=== PATIENT | male | born 1940 | race Caucasian/White ===

== ENCOUNTER 2017-01-14 11:28 | Inpatient (IN) | payer OTHER, MEDICARE ==
[~2017-01-14] VITALS: Ht 172.7 cm; Wt 74.8 kg
[~2017-01-14 11:28] MED LIST changes: -AZAT50 PO; -CALC200S NASAL; -CALC500T46 PO; -CALCTAB19 PO; -CHOL20005 PO; -FOLI1TAB4 PO; -HYDR-3583 PO; -HYDR25TA5 PO; -LEVO100T5 PO; -LISI-515 PO; -LISI40TA PO; -MAGN1TAB14 PO; -MAGN400T2 PO; -METH2.5T PO; -OCUVTAB4 PO; -OMEGCAP PO; -TOPR25TA PO; -TRAM50TA PO; -TRAZ50TA12 PO; -TRIA37.53 PO; -ULTR50TA5 PO; -VIAG50TA PO; -VITA100032; -VITA10007 PO; -[UNRECOGNIZED DRUG - CODE] TOPICAL
[2017-01-14] MEDS ORDERED: TOPR25TA PO (13:18)
[2017-01-14] MEDS ORDERED: TRIA37.53 PO (13:18)
[2017-01-14] MEDS ORDERED: LEVO100T5 PO (13:18)
[2017-01-14] MEDS ORDERED: CALC200S NASAL (13:18)
[2017-01-14] MEDS ORDERED: MAGN400T2 PO (13:19)
[2017-01-14] MEDS ORDERED: OMEGCAP PO (13:19)
[2017-01-14] MEDS ORDERED: ULTR50TA5 PO (13:25)
[2017-01-14] MEDS ORDERED: FOLI1TAB4 PO (13:25)
[2017-01-14] MEDS ORDERED: METH2.5T PO (13:25)
[2017-01-14] MEDS ORDERED: CHOL20005 PO (13:25)
[2017-01-14] MEDS ORDERED: VITA10007 PO (13:25)
[2017-01-14] MEDS ORDERED: CALC500T46 PO (13:25)
[2017-01-14] MEDS ORDERED: LISI-515 PO (13:25)
[2017-01-14] MEDS ORDERED: TRAZ50TA12 PO (13:25)
[2017-01-14] MEDS ORDERED: AZAT50 PO (13:25)
[2017-01-14] MEDS ORDERED: OCUVTAB4 PO (13:26)
--- NOTE | 2017-01-15 13:39 | MH ---
cc: CARLOS DAVIDSON MD, ROHIT K. M.D. DATE OF ADMISSION 01/16/2017 ADMISSION DIAGNOSIS Cervical stenosis HISTORY OF PRESENT ILLNESS This is a 76-year-old male who is well-known to us. He has previously undergone a C4/C5, C5/C6, and C6-C7 anterior cervical fusion with cervical plate placement on 02/14/2009. He did well after surgery, although presented to our office recently three days ago for an evaluation of neck pain with weakness in his arms and unsteady gait. He states he has rheumatoid arthritis and has been on Enbrel and methotrexate for a long time. He states that they placed him on a new rheumatoid arthritis medication in June 2016 and three weeks later he developed neutropenic fever and went into septic shock. He states he was placed on steroids and after he was discharged, started noticing paresthesias in his hands that progressively got worse. He states that at this point. He has paresthesias affecting his hands and arms all over. He has pain radiating into the upper extremities, but has difficulty telling the distribution secondary to the numbness and paresthesias. He also has numbness from the knees down to the toes. He rates his neck pain as 8/10. He denies any urinary frequency or incontinence. He started noticing ataxia since September of 2016. PAST MEDICAL HISTORY Significant for: 1. Rheumatoid arthritis 2. Severe cervical stenosis requiring multilevel cervical decompression and fusion with cervical plate placement in 2008 3. Hypothyroidism 4. Hypertension 5. Hyperlipidemia 6. 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 7. She has also had a right carotid endarterectomy in 1997. 8. Bypass heart surgery five vessel in 2003. CURRENT MEDICATIONS He is takin. Calcitonin 2. [place] nasal solution one spray each nostril every morning 3. Levothyroxine 0.1 mg daily 3. Hydrochlorothiazide/Triamterene 25/37.5 daily 4. Prednisone 5 mg daily 5. Allopurinol 100 mg daily 6. Metoprolol 25 mg 1/2 tablet daily 7. Sulfasalazine 500 mg daily 8. Magnesium oxide 420 mg two tablets Thursday, Thursday, Thursday one tablets Thursday, and Thursday. 9. Fish oil 1000 mg daily 10. Vitamin C 1000 mg daily 11. Trazodone 50 mg daily 12. Lisinopril 40 mg 1/2 tablet daily 13. Folic acid 1 mg three daily except on Thursday 14. Simvastatin 40 mg one-half daily 15. Methotrexate 2.5 mg two tablets every Thursday 16. Calcium with vitamin D 1000 mg daily 17. Vitamin D3 1000 international units two tablets daily 18. Aspirin 81 mg daily, this was placed on hold prior to surgical intervention. 19. Tramadol 50 mg two tablets q.6 h p.r.n. pain 20. PreserVision higher vitamin one in the morning when the after. ALLERGIES TO MEDICATIONS HE IS SENSITIVE TO IV NARCOTICS WHICH HE STATES MAKES HIM VERY NAUSEOUS AND VOMITING. FAMILY HISTORY His father is at 58 year-old, was diabetic and had heart disease. His mother is at 92 years-old, had COPD. His brother is when he was an infant. His sister is alive and another brother is alive and well. SOCIAL HISTORY He is retired. He is . He has two children. He does not smoke and has not smoked in the past. He does not drink alcohol. REVIEW OF SYSTEMS CONSTITUTIONAL: Denies any fever or chills. EARS, NOSE, AND THROAT: No pharyngitis, exudates or bloody drainage from his nose. CARDIOVASCULAR: Denies any chest pain or palpitations. RESPIRATORY: No cough or shortness of breath. GENITOURINARY: No dysuria or hematuria. MUSCULOSKELETAL: Positive for joint pain related to his rheumatoid arthritis. SKIN: No rashes or pruritus. NEUROLOGIC: No difficulty with speech or memory. GASTROINTESTINAL: No nausea, vomiting, or abdominal pain. PSYCHIATRIC: No anxiety or depression symptoms. ENDOCRINE: No polyuria or polydipsia. HEMATOLOGIC: Positive for bruising or bleeding tendencies. PHYSICAL EXAMINATION HEAD: Normocephalic, atraumatic. NECK: Supple. No carotid bruits. Clear on auscultation. LUNGS: Clear to auscultation bilaterally. HEART: Regular rate and rhythm. Normal S1 and S2. ABDOMEN: Soft, nontender. Positive bowel sounds. SKIN: Reveals no cyanosis or erythema. MUSCULOSKELETAL: He can abduct his shoulders only to about 40 degrees and has weakness 2/5. Biceps strength is 4/5. Triceps is 3-/5, hand intrinsics is 2/5 bilaterally and his lower extremities he is 4/5 bilaterally. He has a spastic gait with ambulation. NEUROLOGIC: He is awake, alert, oriented. Cranial nerves II-XII are grossly intact. His speech is fluent. Comprehension is good. Sensation is diminished in the upper and lower extremities below the knee. Reflexes are diminished in the lower extremities. There is Joon reflex. DATA REVIEWED MRI of the cervical spine from January 03, 2016 was reviewed which reveals a severe spinal stenosis and cord compression at the C3-C4 level where the spinal canal is reduced at about 3 mm from a disk herniation. He has a previous C4-C7 anterior cervical diskectomy and fusion with plate in place. There is C7/T1 anterolisthesis and disk protrusion but no significant spinal stenosis. IMPRESSION This is a 76-year-old male with severe cervical myelopathy with associated weakness and very spastic gait over the last four to five months which has progressively gotten worse. MRI of the cervical spine revealed severe spinal stenosis and cord compression at the C3-C4 level where the spinal canal is reduced to about 3 mm from a disk herniation. He has also undergone in the past a C4-C7 anterior cervical fusion and there is a cervical plate in place. He also has a C7 and T1 anterolisthesis with disk protrusion, but no significant spinal stenosis. PLAN We have discussed treatment options and given severe spinal cord compression and associated cervical myelopathy, we have recommended anterior C3-C4 microdiskectomy with fusion and possible removal of the C4-C7 plate to rule out exposure for the C3-C4 level. The procedure, as well as, the risk benefit, alternatives and recovery time were explained in great detail with the patient. We have discussed the procedure using spine models in the office and all his questions were answered to his satisfaction. The patient states that he understands the risks involved with surgery which include, but are not limited to bleeding, infection, muscle weakness, voice hoarseness, difficulty swallowing, heart attack, stroke especially given his complete left carotid artery occlusion, infection, muscle weakness, among others and he states that he understands these risks and he is requesting that we proceed and he was therefore scheduled accordingly. Dictated by: Bud Miller PA-C MD NEO Cardoza/ESPERANZA /12:13 PM /1:15 PM
[2017-01-16 06:30] VITALS: BP 201/82; PULSE 48; RESP 18; TEMP 97.9; O2SAT 99
[2017-01-16] MEDS ORDERED: SODIUM CHLORID 0.9% 500 ML IV PRN (06:30)
[2017-01-16] MEDS ORDERED: POVIDONE IODINE 5% (ANTISEPSIS KIT) 4 APPLICATIONS EACH NARE PRN (06:30)
[2017-01-16] MEDS ORDERED: METOPROLOL TARTRATE 25 MG TAB PO PRN (06:30)
[2017-01-16] MEDS ORDERED: VANCOMYCIN HCL 1000 MG ON-CALL/NS 250 ML IV SCH ×2 (06:30)
[2017-01-16] MEDS ORDERED: CHLORHEXIDINE GLUCONATE 2 % 1 PACK (2 CLOTHS) TOPICAL PRN (06:30)
[2017-01-16] MEDS ORDERED: LACTATED RINGER'S 1000 ML IV PRN (06:30)
[2017-01-16] MEDS ORDERED: SODIUM CHLOR 0.9% 1000 ML INJ 1,000 ML IV SCH (06:30)
[2017-01-16] MEDS ORDERED: INSULIN HUMAN REGULAR 1,000 UNITS/10 ML VIAL SQ PRN (06:30)
[2017-01-16] MEDS ORDERED: VANCOMYCIN HCL 1000 MG VIAL ONE (07:05)
[2017-01-16] MEDS ORDERED: THROMBIN (TOPICAL) 5,000 UNIT VIAL ONE (07:05)
[2017-01-16] MEDS ORDERED: GELFOAM SIZE 100 ONE (07:06)
[2017-01-16] MEDS ORDERED: BUPIVACAINE/EPINEPHRINE 0.5% PF 30 ML VIAL ONE (07:06)
[2017-01-16] MEDS ORDERED: DEXAMETHASONE SOD PHOS 4 MG/ML VIAL ONE (08:28)
[2017-01-16] MEDS ORDERED: ACETAMINOPHEN 1000 MG/100 ML VIAL IV ONE (08:28)
[2017-01-16] MEDS ORDERED: MIDAZOLAM HCL 2 MG/2 ML VIAL ONE ×2 (08:28→12:44)
[2017-01-16] MEDS ORDERED: FAMOTIDINE 20 MG/2 ML VIAL ONE (08:28)
[2017-01-16] MEDS ORDERED: KETAMINE HCL 500 MG/5 ML VIAL ONE (08:29)
[2017-01-16] MEDS ORDERED: APREPITANT 40 MG CAP ONE (08:36)
[2017-01-16] MEDS ORDERED: ePHEDrine/NS 25 MG/5 ML SYR IV ONE (12:00)
[2017-01-16] MEDS ORDERED: LACTATED RINGER'S 1000 ML INJ 1,000 ML IV ONE (12:00)
[2017-01-16] MEDS ORDERED: PHENYLEPH/NS 1000 MCG/10 ML SYR IV ONE (12:00)
[2017-01-16] MEDS ORDERED: ONDANSETRON HCL 4 MG/2 ML VIAL IV PUSH ONE (12:00)
[2017-01-16] MEDS ORDERED: PROPOFOL 200 MG/20 ML AMP IV ONE (12:00)
[2017-01-16] MEDS ORDERED: NORMOSOL R INJ 1,000 ML IV ONE (12:00)
[2017-01-16] MEDS ORDERED: SODIUM CHLORID 0.9% 500 ML INJ 500 ML IV ONE (12:00)
[2017-01-16] MEDS ORDERED: DO NOT ADM ANY ANTICOAGULANT DRUGS PRN (12:21)
[2017-01-16] MEDS ORDERED: NS + KCL 20 MEQ INJ 1,000 ML IV SCH (12:26)
[2017-01-16] MEDS ORDERED: CYCLOBENZAPRINE HCL 10 MG TAB PO PRN (12:30)
[2017-01-16] MEDS ORDERED: MENTHOL LOZENGE BUCCAL PRN (12:30)
[2017-01-16] MEDS ORDERED: traMADol HCL 50 MG TAB PO PRN (12:30)
[2017-01-16] MEDS ORDERED: ACETAMINOPHEN 325 MG TAB PO PRN (12:30)
[2017-01-16] MEDS ORDERED: MAGNESIUM HYDROXIDE SUSP 30 ML CUP PO PRN (12:30)
[2017-01-16] MEDS ORDERED: POTASSIUM CHLOR 20 MEQ PREMIX 100 ML IV PRN (12:30)
[2017-01-16] MEDS ORDERED: ACETAMINOPHEN/HYDROcodone 325 MG/10 MG TAB PO PRN (12:30)
[2017-01-16] MEDS ORDERED: SODIUM CHLORIDE 0.9% FLUSH 10 ML FLUSH IV FLUSH PRN (12:30)
[2017-01-16] MEDS ORDERED: ONDANSETRON HCL 4 MG/2 ML VIAL IV PRN (12:30)
[2017-01-16] MEDS ORDERED: HYDROmorphone HCL PF 1 MG/ML VIAL IV PUSH PRN (12:30)
[2017-01-16] MEDS ORDERED: cloNIDine HCL 0.1 MG TAB PO PRN (12:30)
[2017-01-16] MEDS ORDERED: CALCIUM GLUCONATE INJ 1 GM in SODIUM CHLORIDE 0.9% INJ 100 ML IV PRN (12:30)
[2017-01-16] MEDS ORDERED: RESP: ALBUTEROL 2.5 MG/3 ML NEB (PRN) NEB (12:30)
[2017-01-16] MEDS ORDERED: MAGNESIUM SULFATE INJ 2 GM in SODIUM CHLORIDE 0.9% INJ 100 ML IV PRN (12:30)
[2017-01-16] MEDS ORDERED: METOCLOPRAMIDE HCL 10 MG/2 ML VIAL IVS PRN (12:30)
[2017-01-16] MEDS ORDERED: ALUMINUM/MAGNESIUM/SIMETH 30 ML CUP PO PRN (12:30)
--- NOTE | 2017-01-16 12:34 | PD.OP ---
MD Kenny Mariscal MD Operative Report Date of Surgery: Jan 16, 2017 Preoperative Diagnosis: Severe cervical myelopathy with spinal cord compression from C3-4 disc osteophyte complex; history of anterior C4-7 discectomy with fusion and plate placement Postoperative Diagnosis: Same Procedure: Anterior cervical C3-4 microdiscectomy with interbody fusion; removal of anterior C4-7 cervical plate; placement of C3-4 anterior cervical plate; C3-4 interbody cage placement; microsurgical technique Anesthesia: Gen. endotracheal by Rubin Key Surgeon: Kenneth Parker M.D. Import Manager(s): Samanta Patton Operation and Findings: Following administration of general endotracheal anesthesia maintaining the neck in a neutral position with the collar in place, the patient received a gram of vancomycin and Decadron 10 mg intravenously. Sequential compression devices were placed in supine position on a Dayron table and all pressure points adequately padded. The head secured in a donut and anterior cervical region then shaved and prepped with Chloraprep and sterilely draped with Ioban along with the usual sterile draping. A transverse skin incision on the right side of the neck at the previous incision site was then made after infiltrating the skin with 0.5% Marcaine with epinephrine solution extending down through the platysma. At the anterior border of the sternocleidomastoid further dissection was undertaken developing a plane between the carotid sheath laterally and the trachea esophagus medially. The prevertebral fascia was exposed and dissected out. The medial attachments of the longus colli muscles were detached and a self-retaining retractor used for exposure. The C3-4 disc space was localized with a marking the disc space and using lateral fluoroscopy. In order to expose the C4 superior vertebral body portion the cervical plate extending from C4 to C7 level had to be removed. Solid interbody fusion was noted in all levels from C4-7. [place] distraction screws 14 mm length were placed one in the C3 and one in the C4 body interbody distraction and exposure. There was significant disc degeneration with disc height collapse and anterior osteophytes noted at the C3-4 level and the osteophytes were resected with a Leksell and annulus incised with a 15 blade and further dissection undertaken using microtechnique with microscope magnification. Diskectomy was undertaken with pituitaries and the endplates were also decorticated with curettes and drill bit. And more posteriorly there was disk osteophyte complex significantly compressing the thecal sac along with a significant uncovertebral joint hypertrophy with foraminal stenosis which was decompressed along with removal of the posterior longitudinal ligaments at both levels. The foramen was decompressed bilaterally using a Kerrison's and palpation with a nerve hook, the exiting nerve roots were felt to be free. The area was then copiously irrigated. I then placed a Peek cage packed with local autograft bone at the C3-4 interspace under fluoroscopy guidance. [place] distraction pins were removed and the holes plugged with Gelfoam for hemostasis. In order to facilitate the fusion and provide stabilization, a Precision spine cervical plate was then placed with two 14 mm variable angle screws in the C3 body and two 14 mm fixed angle screws in the C4 body. The plate screw locking mechanism was then engaged. AP and lateral fluoroscopy confirmed good placement of the construct and the retractor was then removed. Muscular bleeding points were cauterized with bipolar cautery and Gelfoam was then also used for hemostasis which was removed. The platysma was then approximated using 3-0 Vicryl interrupted stitches and 3-0 Vicryl subcuticular stitch also placed in an interrupted fashion, and final skin closure was with Mastisol and Steri-Strips. Sterile dressing was then applied. The patient was then extubated and taken to the recovery room. There are no intraoperative complications and all sponge and needle counts were correct at the end of procedure. Estimated blood loss was about 100 cc. The patient did undergo intraoperative neurologic monitoring which remained stable throughout the surgery. Kenneth Parker MD Jan 16, 2017 12:34
[2017-01-16] MEDS ORDERED: fentaNYL CITRATE 250 MCG/5 ML AMP ONE (12:44)
[2017-01-16 12:56] LABS: AUTOMATED NEUTROPHIL # 6.8 TH/MM3 (1.8-7.7); BASOPHIL % 0.3 % (0.0-2.0); EOSINOPHIL % 0.5 % (0.0-4.0); HEMATOCRIT 34.5 % (39.0-51.0); HEMO FLAGS DIFF FINAL; LYMPH % 10.7 % (9.0-44.0); LYMPHOCYTE # 0.8 TH/MM3 (1.0-4.8); MEAN CELL VOLUME 99.2 FL (80.0-100.0); MEAN CORPUSCULAR HEMOGLOBIN 33.6 PG (27.0-34.0); MEAN CORPUSCULAR HGB CONC 33.9 % (32.0-36.0); MONO % 0.7 % (0.0-8.0); NEUT % 87.8 % (16.0-70.0); PLATELET COUNT 120 TH/MM3 (150-450); RED BLOOD COUNT 3.47 MIL/MM3 (4.50-5.90); RED CELL DISTRIBUTION WIDTH 14.3 % (11.6-17.2); WHITE BLOOD COUNT 7.8 TH/MM3 (4.0-11.0)
--- NOTE | 2017-01-16 13:27 | RADRPT ---
EXAM DATE/TIME: 01/16/2017 09:02 [facility] COMPARISON: No previous studies available for comparison. INDICATIONS : Fusion C3,C4 with screw and plate placement. MEDICAL HISTORY : None. SURGICAL HISTORY : Fusion, cervical. ENCOUNTER: Initial ACUITY: 1 day PAIN SCORE: Non-responsive. LOCATION: Cervical spine. FINDINGS: There is anterior cervical fusion with a plate anteriorly from C3-C4. The vertebral bodies are normal in alignment on the lateral view. CONCLUSION: 1. Postsurgical changes as above. Washington Cruz MD on January 16, 2017 at 13:23 Board Certified Radiologist. This report was verified electronically.
[2017-01-16 13:42] LABS: BICARBONATE 27.6 MEQ/L (21.0-32.0)
[2017-01-16 13:43] LABS: MAGNESIUM 2.1 MG/DL (1.5-2.5); POTASSIUM 4.4 MEQ/L (3.5-5.1)
[2017-01-16] MEDS: HYDROCORTISONE SOD SUCCINATE 100 MG VIAL IV PUSH SCH ×2 (14:00→22:09)
[2017-01-16 14:55] VITALS: BP 112/52; PULSE 76; RESP 18; TEMP 96.8; O2SAT 96
[2017-01-16] MEDS: DOCUSATE SODIUM 100 MG CAP PO SCH (19:51)
[2017-01-16] MEDS: CHOLECALCIFEROL (VIT D3) 1000 UNIT TAB PO SCH (19:51)
[2017-01-16] MEDS: MULTIVITAMIN HEMATINIC THERAPEUTIC TAB PO SCH (19:51)
[2017-01-16 20:39] VITALS: BP 95/55; PULSE 59; RESP 18; TEMP 97.6; O2SAT 98
[2017-01-16] MEDS ORDERED: PRAVASTATIN SOD 40 MG TAB PO SCH (21:00)
[2017-01-16] MEDS: SODIUM CHLORIDE 0.9% FLUSH 10 ML FLUSH IV FLUSH SCH (21:00)
[2017-01-16] MEDS ORDERED: traZODone HCL 50 MG TAB PO SCH (21:00)
[2017-01-16] MEDS ORDERED: ZOLPIDEM TARTRATE 5 MG TAB PO PRN (21:00)
[2017-01-17 00:06] VITALS: BP 101/52; PULSE 60; RESP 18; TEMP 96.7; O2SAT 97
[2017-01-17 05:03] VITALS: BP 103/54; PULSE 66; RESP 18; TEMP 96; O2SAT 99
[2017-01-17] MEDS ORDERED: LEVOTHYROXINE SODIUM 100 MCG TAB PO SCH (06:00)
[2017-01-17] MEDS: HYDROCORTISONE SOD SUCCINATE 100 MG VIAL IV PUSH SCH (06:10)
[2017-01-17 08:00] VITALS: BP 100/57; PULSE 63; RESP 18; TEMP 96.7; O2SAT 95
[2017-01-17 08:55] VITALS: O2SAT 98
[2017-01-17] MEDS ORDERED: ASCORBIC ACID 500 MG TAB PO SCH (09:00)
[2017-01-17] MEDS ORDERED: METOPROLOL SUCCINATE 25 MG EXTENDED RELEASE TAB PO SCH (09:00)
[2017-01-17] MEDS ORDERED: ALLOPURINOL 100 MG TAB PO SCH (09:00)
[2017-01-17] MEDS ORDERED: TRIAMTERENE/HCTZ 37.5 MG/25 MG CAP PO SCH (09:00)
[2017-01-17] MEDS ORDERED: CALCITONIN SALM 200 UNIT/SPRAY 3.7 ML BTLN NASAL SCH (09:00)
[2017-01-17] MEDS ORDERED: PANTOPRAZOLE SOD 40 MG DELAYED RELEASE TAB PO SCH (09:00)
[2017-01-17] MEDS ORDERED: sulfaSALAzine 500 MG TAB PO SCH (09:00)
[2017-01-17] MEDS: SODIUM CHLORIDE 0.9% FLUSH 10 ML FLUSH IV FLUSH SCH (09:00)
[2017-01-17] MEDS ORDERED: FOLIC ACID 1 MG TAB PO SCH (09:00)
[2017-01-17] MEDS ORDERED: LISINOPRIL 20 MG TAB PO SCH (09:00)
[2017-01-17] MEDS ORDERED: predniSONE 5 MG TAB PO SCH (09:00)
[2017-01-17] MEDS ORDERED: ASPIRIN EC 81 MG TABEC PO SCH (09:00)
--- NOTE | 2017-01-17 09:20 | HHI.NSPN ---
History Chief Complaint: Pt feeling better. Mild paresthesias in hands. Interval History 01/17/17: Pt underwent a s3/C4 ACF with removal of C4-C7 cervical plate. He denies much neck pain only mild incisional discomfort. No radiculopathy in UEs. Mild paresthesias in hands but improved. Pt voiding well. Ambulates short distance in room well. Review of Systems General: Negative for: fever, chills, insomnia Respiratory: Negative for: shortness of breath, cough, sputum Cardiovascular: Negative for: chest pain Gastrointestinal: Negative for: nausea, vomitting, diarrhea, constipation Exam Results Vital Signs Date Time Temp Pulse Resp B/P Pulse Ox O2 Delivery O2 Flow Rate FiO2 01/17/17 08:55 98 21 01/17/17 05:03 96.0 66 18 103/54 01/16/17 14:10 Room Air 01/16/17 13:15 3 Intake and Output 01/16/17 01/16/17 01/17/17 08:00 16:00 00:00 Intake Total 2300 ml Output Total 1350 ml Balance 950 ml Physical Examination Resp: CTA bilaterally Heart: NSR no murmurs Abd: Soft positive bs Skin: Incision clean and dry. No signs of infection. New bandage placed. Muscle: Moves all 4 extremities well. bilateral deltoid weakness pt states from OA shoulders. HI weakness 3/5. Ambulates short distance well. Neuro: Pt awake and alert. Follows commands well. Speech clear and appropriate. Lab, Micro, Other Results Last Impressions Cervical Spine X-Ray 01/16/17 0000 Signed Impressions: Service Date/Time: Monday, January 16, 2017 09:02 - CONCLUSION: 1. Postsurgical changes as above. Washington Cruz MD Laboratory Tests Test 01/16/17 12:42 White Blood Count 7.8 TH/MM3 Red Blood Count 3.47 MIL/MM3 Hemoglobin 11.7 GM/DL Hematocrit 34.5 % Mean Corpuscular Volume 99.2 FL Mean Corpuscular Hemoglobin 33.6 PG Mean Corpuscular Hemoglobin 33.9 % Concent Red Cell Distribution Width 14.3 % Platelet Count 120 TH/MM3 Mean Platelet Volume 9.3 FL Neutrophils (%) (Auto) 87.8 % Lymphocytes (%) (Auto) 10.7 % Monocytes (%) (Auto) 0.7 % Eosinophils (%) (Auto) 0.5 % Basophils (%) (Auto) 0.3 % Neutrophils # (Auto) 6.8 TH/MM3 Lymphocytes # (Auto) 0.8 TH/MM3 Monocytes # (Auto) 0.1 TH/MM3 Eosinophils # (Auto) 0.0 TH/MM3 Basophils # (Auto) 0.0 TH/MM3 CBC Comment DIFF FINAL Differential Comment Sodium Level 139 MEQ/L Potassium Level 4.4 MEQ/L Chloride Level 106 MEQ/L Carbon Dioxide Level 27.6 MEQ/L Anion Gap 5 MEQ/L Blood Urea Nitrogen 25 MG/DL Creatinine 1.25 MG/DL Estimat Glomerular Filtration 56 ML/MIN Rate Random Glucose 124 MG/DL Calcium Level 8.1 MG/DL Magnesium Level 2.1 MG/DL 01/16/17 01/16/17 01/17/17 15:00 23:00 07:00 Intake Total 2300 ml Output Total 1350 ml 400 ml Balance 950 ml -400 ml Intake IV Total 100 ml Other 2200 ml Output Urine Total 1250 ml 400 ml Estimated Blood Loss 100 ml # Bowel Movements 0 Medical Decision Making Impression and Plan A: 76 y/o M s/p C3/C4 ACF with removal at C4-C7 cervical plate placement. P: Discharge pt home Keep incision clean and dry discussed restrictions. Bud Fritz Jan 17, 2017 09:20
[2017-01-17] MEDS ORDERED: HYDR-3583 PO (09:26)
[2017-01-17] MEDS: CHOLECALCIFEROL (VIT D3) 1000 UNIT TAB PO SCH (09:55)
[2017-01-17] MEDS: MULTIVITAMIN HEMATINIC THERAPEUTIC TAB PO SCH (09:55)
[2017-01-17] MEDS: DOCUSATE SODIUM 100 MG CAP PO SCH (09:57)
[2017-01-17] MEDS ORDERED: MAGNESIUM OXIDE 400 MG TAB PO SCH (11:00)
== END 2017-01-17 12:07 | disposition home or self-care (01) | DRG 472 ==
LOC: HSDI 01-16 05:46 → N06B 01-16 14:34
PROVIDERS: ADMIT Neurological Surgery; ATTEND Neurological Surgery
PROC: 0RT30ZZ Resection of Cervical Vertebral Disc, Open Approach (ICD-10-PCS; 2017-01-16)
PROC: 0PP304Z Removal of Internal Fixation Device from Cervical Vertebra, Open Approach (ICD-10-PCS; 2017-01-16)
PROC: 4A11X4G Monitoring of Peripheral Nervous Electrical Activity, Intraoperative, External Approach (ICD-10-PCS; 2017-01-16)
PROC: 0RG10A0 Fusion of Cervical Vertebral Joint with Interbody Fusion Device, Anterior Approach, Anterior Column, Open Approach (ICD-10-PCS; principal; 2017-01-16 08:48)
DX: M50.01 Cervical disc disorder with myelopathy, high cervical region (principal); G95.29 Other cord compression; M06.9 Rheumatoid arthritis, unspecified; I10 Essential (primary) hypertension; E03.9 Hypothyroidism, unspecified; Z98.1 Arthrodesis status; E78.5 Hyperlipidemia, unspecified; Z79.82 Long term (current) use of aspirin; Z79.52 Long term (current) use of systemic steroids; Z79.899 Other long term (current) drug therapy
CPT/HCPCS: 72040; 76000; 76937; 80048; 83735; 85025; 94150; C1713; J0131; J0690; J1100; J1720; J2250; J2370; J2405; J3010; J3370; J3480; J7030; J7040; J7050; J7120; J7512; J8501

== ENCOUNTER → 2017-01-14 | Outpatient (CLI) | payer OTHER ==
[~2017-01-14] MED LIST: ALLO100T PO; ASPI1TAB69 PO; AZAT50 PO; CALC200S NASAL; CALC500T46 PO; CALCTAB19 PO; CHOL20005 PO; FOLI1TAB4 PO; HYDR-3583 PO; HYDR25TA5 PO; LEVO100T5 PO; LISI-515 PO; LISI40TA PO; MAGN1TAB14 PO; MAGN400T2 PO; METH2.5T PO; OCUVTAB4 PO; OMEGCAP PO; PRED5TAB PO; SIMV40TA PO; SULF500T3 PO; TOPR25TA PO; TRAM50TA PO; TRAZ50TA12 PO; TRIA37.53 PO; ULTR50TA5 PO; VIAG50TA PO; VITA100032; VITA10007 PO; [UNRECOGNIZED DRUG - CODE] TOPICAL
== END ==
LOC: CPRE 11:24
PROVIDERS: ATTEND Neurological Surgery
DX: M48.06 Spinal stenosis, lumbar region (principal); M50.30 Other cervical disc degeneration, unspecified cervical region; M47.12 Other spondylosis with myelopathy, cervical region